=== PATIENT | female | born 1955 | race Caucasian/White ===

== ENCOUNTER → 2020-12-24 00:25 | Outpatient (CLI) | payer BC, SELFPAY ==
[2020-12-24 19:26] LABS: SARS-CoV-2 RNA PCR Negative
== END ==
PROVIDERS: PCP Internal Medicine; Visit Provider Internal Medicine Gastroenterology
DX: Z01.812 Encounter for preprocedural laboratory examination (principal); Z20.822 Contact with and (suspected) exposure to COVID-19
CPT/HCPCS: C9803; U0003; U0005

== ENCOUNTER 2020-12-27 00:51 | Day surgery (SDC) | payer BC, SELFPAY ==
[2020-12-14 14:05] VITALS: BMI 40.2
[2020-12-27 07:51] VITALS: BP 118/95; PULSE 86; RESP 18; TEMP 36.6; O2SAT 95; BMI 40.1
[2020-12-27] MEDS: LACTATED RINGERS 1,000 ML 150 ML IV CONT (08:07)
--- NOTE | 2020-12-27 08:30 | P.CONGI_ITS ---
Assessment and Plan Assessment and plan (1) Positive colorectal cancer screening using Cologuard test: Code(s): R19.5 - Other fecal abnormalities Status: Acute Assessment and Plan: Recent cologuard test was positive. For this reason screening colonoscopy will be performed. (2) Family history of colonic polyps: Code(s): Z83.71 - Family history of colonic polyps Status: Acute Assessment and Plan: Patient's brother has had colon polyps. For this reason colonoscopy will be performed. GI Consult Note Consult date/time: 12/27/20 08:30 HPI: Becca Malagon is a 65 year old female Presents for screening colonoscopy. Patient was recently found to have positive cologuard test. patient's family history is significant that her brother has had colon polyps. Patient states that her own weight appetite bowel movements are normal. She denies abdominal pain. She has had no bleeding. Patient presents today for screening colon oscopy. Review of Systems Review of Systems: All systems reviewed & are unremarkable except as noted in HPI and below PMFSH Social History Social History Smoking status: Never smoker Alcohol use details: rarely Living arrangements: alone Spiritual care concerns: No Meds Home Medications and Allergies Home Medications Medication Instructions Recorded Confirmed Type Herbal Life Vitamin 1 tab-cap PO BID 12/14/20 12/27/20 History aspirin-caffeine [Catracho Back and 1 tablet PO DAILY PRN 12/14/20 12/14/20 History Body] hyalur ac-chond sul-colg II-AA 2 cap PO DAILY 12/14/20 12/27/20 History [Hyaluronic Acid (chond-collgn)] lactobacillus combination no.4 3,000 mmu cells PO DAILY 12/14/20 12/27/20 History [Probiotic] omeprazole magnesium [Prilosec OTC] 20 mg PO DAILY 12/14/20 12/27/20 History Allergies Allergy/AdvReac Type Severity Reaction Status Date / Time adhesive tape AdvReac Redness of Verified 12/27/20 07:48 Skin Vital Signs Vital Signs - 24 hr 12/27/20 07:51 Temperature 98 F Pulse Rate 86 Respiratory Rate 18 Blood Pressure 118/95 H Pulse Oximetry 95 Exam Narrative: Exam Narrative: Physical exam reveals patient be alert. Vital signs stable. HEENT exam unremarkable. Patient is anicteric. Lungs are clear to auscultation and percussion. Heart is without murmur or extra sounds. Abdominal exam bowel sounds are present soft nontender with no organomegaly. Digital external rectal exam is normal.
--- NOTE | 2020-12-27 09:08 | WPDANESEPPF ---
Anes - Initial Pre Proc Eval Procedure: Operation Date: 12/27/20 09:00 Proposed Procedures p Colonoscopy - Charles Cheung MD Date/Time: 12/27/20 09:08 Surgeon: Charles Cheung MD Pre Op Diagnosis: positive cologuard Patient Data Age: 65 Gender: F Height: 1.52 m Weight: 93.2 kg Last Vital Signs Temp 98 F 12/27/20 07:51 Pulse 86 12/27/20 07:51 Resp 18 12/27/20 07:51 BP 118/95 H 12/27/20 07:51 Pulse Ox 95 12/27/20 07:51 Allergies Allergy/AdvReac Type Severity Reaction Status Date / Time adhesive tape AdvReac Redness of Verified 12/27/20 07:48 Skin Home Medications Medication Instructions Recorded Confirmed Type Herbal Life Vitamin 1 tab-cap PO BID 12/14/20 12/27/20 History aspirin-caffeine [Catracho Back and 1 tablet PO DAILY PRN 12/14/20 12/14/20 History Body] hyalur ac-chond sul-colg II-AA 2 cap PO DAILY 12/14/20 12/27/20 History [Hyaluronic Acid (chond-collgn)] lactobacillus combination no.4 3,000 mmu cells PO DAILY 12/14/20 12/27/20 History [Probiotic] omeprazole magnesium [Prilosec OTC] 20 mg PO DAILY 12/14/20 12/27/20 History Patient hx anesthesia problems: none Family hx anesthesia problems: none PMFSH Past Medical History Medical History (Updated 12/27/20 @ 09:08 by Joao Frederick MD) Arthritis GERD (gastroesophageal reflux disease) Social History Social History Smoking status: Never smoker Alcohol use details: rarely Living arrangements: alone Spiritual care concerns: No Anes - Eval Final PreProcedure Day of Procedure 12/27/20 09:08 Patient weight: morbidly obese Heart: regular rate and rhythm Lungs: clear to auscultation Airway: Mallampati scale class II Neurological: alert and oriented Last oral intake: >/= 8 hours ASA classification: III Emergent: no Anesthetic plan: proceed Anesthesia type and monitoring: general GIVS and standard monitoring Informed Consent: The patient's anesthetic plan and its attendant risks and benefits were discussed with the patient/family/POA. Questions were solicited and answers provided to the satisfaction of the patient/family/POA.
[2020-12-27 09:36] VITALS: BP 101/62; PULSE 76; RESP 16; O2SAT 95
[2020-12-27 09:46] VITALS: BP 121/77; PULSE 66; RESP 18; O2SAT 94
[2020-12-27 09:56] VITALS: BP 121/77; PULSE 68; RESP 20; O2SAT 94
== END 2020-12-27 10:15 | disposition home or self-care (01) ==
PROVIDERS: PCP Internal Medicine; Visit Provider Internal Medicine Gastroenterology
PROC: 0DJD8ZZ Inspection of Lower Intestinal Tract, Via Natural or Artificial Opening Endoscopic (ICD-10-PCS; CPT 45378; principal; 2020-12-27 09:00)
DX: R19.5 Other fecal abnormalities (principal); D12.5 Benign neoplasm of sigmoid colon; K57.30 Diverticulosis of large intestine without perforation or abscess without bleeding; K64.8 Other hemorrhoids; Z83.71 Family history of colonic polyps; K21.9 Gastro-esophageal reflux disease without esophagitis; E66.01 Morbid (severe) obesity due to excess calories; Z68.41 Body mass index [BMI] 40.0-44.9, adult
CPT/HCPCS: 45385; 88305; J2704; J7120

== ENCOUNTER 2021-11-27 02:49 | Day surgery (SDC) | payer MEDICARE, SELFPAY ==
[2021-11-20 16:07] VITALS: BMI 40.8
--- NOTE | 2021-11-27 07:47 | WPDANESEPPF ---
Anes - Initial Pre Proc Eval Procedure: Operation Date: 11/27/21 13:30 Proposed Procedures p Esophagogastroduodenoscopy - Charles Cheung MD Date/Time: 11/27/21 07:47 Surgeon: Charles Cheung MD Pre Op Diagnosis: ERIC Patient Data Age: 66 Gender: F Height: 1.52 m Weight: 95 kg Allergies Allergy/AdvReac Type Severity Reaction Status Date / Time adhesive tape AdvReac Redness of Verified 11/27/21 12:34 Skin Home Medications Medication Instructions Recorded Confirmed Type Herbal Life Vitamin 1 tab-cap PO BID 12/14/20 11/20/21 History aspirin-caffeine [Catracho Back and 1 tablet PO DAILY PRN 12/14/20 11/20/21 History Body] hyalur ac-chond sul-colg II-AA 2 cap PO DAILY 12/14/20 11/20/21 History [Hyaluronic Acid (chond-collgn)] lactobacillus combination no.4 3,000 mmu cells PO DAILY 12/14/20 11/20/21 History [Probiotic] omeprazole magnesium [Prilosec OTC] 20 mg PO DAILY 12/14/20 11/20/21 History ferrous sulfate [iron] mg 11/20/21 History Patient hx anesthesia problems: none Family hx anesthesia problems: none Results Review: All pre-operative results and documents have been reviewed as part of the pre-operative evaluation. [facility] Past Medical History Medical History (Updated 11/27/21 @ 12:50 by Charles Cheung MD) Anemia Arthritis GERD (gastroesophageal reflux disease) PONV (postoperative nausea and vomiting) Surgical History Surgical History (Updated 11/27/21 @ 07:48 by Andrea Holm DO) History of appendectomy History of History of hysterectomy Social History Social History Smoking status: Never smoker Alcohol use details: rarely Living arrangements: with friend(s) Spiritual care concerns: No Anes - Eval Final PreProcedure Day of Procedure 11/27/21 07:47 Patient weight: morbidly obese Heart: regular rate and rhythm Lungs: clear to auscultation and normal air movement Airway: Mallampati scale class II Neurological: alert and oriented Last oral intake: >/= 8 hours ASA classification: III Emergent: no Anesthetic plan: proceed Anesthesia type and monitoring: general GIVS and standard monitoring Results Review: All pre-operative results and documents have been reviewed as part of the pre-operative evaluation. Informed Consent: The patient's anesthetic plan and its attendant risks and benefits were discussed with the patient/family/POA. Questions were solicited and answers provided to the satisfaction of the patient/family/POA.
[2021-11-27 12:35] VITALS: BP 166/113; PULSE 76; RESP 19; TEMP 36.8; O2SAT 97
--- NOTE | 2021-11-27 12:48 | WPDGICN ---
Assessment and Plan Assessment and plan (1) ERIC (iron deficiency anemia): Code(s): D50.9 - Iron deficiency anemia, unspecified Status: Acute Assessment and Plan: patient with iron deficiency anemia. May be related to previously identified colon polyp. Patient remains anemic however an EGD is requested. Patient does have a history of heartburn in the past suggesting she may have pathology in the upper GI tract. Currently no heartburn on Prilosec. Prilosec use chronically may suppress acid and contribute to iron malabsorption which is another possible etiology. Further recommendations may be given after EGD. GI Consult Note Consult date/time: 11/27/21 12:48 HPI: Becca Malagon is a 66 year old female Presents for EGD. Patient has a history of iron deficiency anemia. For many years been treated with Prilosec for heartburn acid reflux this controls her symptoms well. One year ago was found to have a positive Cologuard test. Colonoscopy revealed colon polyps. Patient has subsequently been identified as having iron deficiency anemia and for thoroughness an EGD is requested. Patient presents today for EGD evaluation. She denies any ongoing heartburn. She has had no weight loss. She has had no bleeding. Family history is Significant for colon polyps.. Review of Systems Review of Systems: All systems reviewed & are unremarkable except as noted in HPI and below PMFSH Past Medical History Medical History (Updated 11/27/21 @ 12:50 by Charles Cheung MD) Anemia Arthritis GERD (gastroesophageal reflux disease) PONV (postoperative nausea and vomiting) Surgical History Surgical History (Updated 11/27/21 @ 07:48 by Andrea Holm DO) History of appendectomy History of History of hysterectomy Social History Social History Smoking status: Never smoker Alcohol use details: rarely Living arrangements: with friend(s) Spiritual care concerns: No Meds Home Medications and Allergies Home Medications Medication Instructions Recorded Confirmed Type Herbal Life Vitamin 1 tab-cap PO BID 12/14/20 11/20/21 History aspirin-caffeine [Catracho Back and 1 tablet PO DAILY PRN 12/14/20 11/20/21 History Body] hyalur ac-chond sul-colg II-AA 2 cap PO DAILY 12/14/20 11/20/21 History [Hyaluronic Acid (chond-collgn)] lactobacillus combination no.4 3,000 mmu cells PO DAILY 12/14/20 11/20/21 History [Probiotic] omeprazole magnesium [Prilosec OTC] 20 mg PO DAILY 12/14/20 11/20/21 History ferrous sulfate [iron] mg 11/20/21 History Allergies Allergy/AdvReac Type Severity Reaction Status Date / Time adhesive tape AdvReac Redness of Verified 11/27/21 12:34 Skin Vital Signs Vital Signs - 24 hr 11/27/21 12:35 Temperature 98.3 F Pulse Rate 76 Respiratory Rate 19 Blood Pressure 166/113 H Pulse Oximetry 97 Exam Narrative: Physical exam reveals patient be alert. Vital signs stable. HEENT exam is unremarkable. Patient is anicteric. Lungs are clear to auscultation and percussion. Heart is without murmur or extra sounds. Abdominal exam bowel sounds are present soft nontender with no organomegaly.
[2021-11-27] MEDS: LACTATED RINGERS 1,000 ML 150 ML IV CONT (13:00)
[2021-11-27 13:34] VITALS: BP 106/77; PULSE 85; RESP 21; O2SAT 92
[2021-11-27 13:44] VITALS: BP 102/85; PULSE 82; RESP 20; O2SAT 95
[2021-11-27 13:54] VITALS: BP 107/83; PULSE 74; RESP 20; O2SAT 95
== END 2021-11-27 14:24 | disposition home or self-care (01) ==
PROVIDERS: PCP Internal Medicine; Visit Provider Internal Medicine Gastroenterology
PROC: 0DJ08ZZ Inspection of Upper Intestinal Tract, Via Natural or Artificial Opening Endoscopic (ICD-10-PCS; CPT 43235; principal; 2021-11-27 13:30)
DX: D50.9 Iron deficiency anemia, unspecified (principal); K44.9 Diaphragmatic hernia without obstruction or gangrene; K25.3 Acute gastric ulcer without hemorrhage or perforation; K21.9 Gastro-esophageal reflux disease without esophagitis; E66.01 Morbid (severe) obesity due to excess calories; Z68.41 Body mass index [BMI] 40.0-44.9, adult
CPT/HCPCS: 43239; 87081; J2704; J7120

== ENCOUNTER 2022-04-10 01:56 | Day surgery (SDC) | payer MEDICARE, SELFPAY ==
[2022-03-22 11:52] VITALS: BMI 39.2
[2022-04-10 07:53] VITALS: BP 121/89; PULSE 108; RESP 20; TEMP 36.6; O2SAT 99; BMI 37.8
[2022-04-10] MEDS: LACTATED RINGERS 1,000 ML 150 ML IV CONT (07:56)
[2022-04-10] MEDS: AMPICILLIN 2 GM/NS 100 ML 2 GM/100 ML BAG IVPB (08:17)
--- NOTE | 2022-04-10 08:17 | PM.HPGS ---
History of Present Illness History of Present Illness Consent: Risks, benefits, and alternatives have been discussed and questions answered. Patient agrees to proceed with procedure. Chief complaint: gastric ulcer Narrative: Becca Malagon is a 66 year old female Presents for EGD. She had a history of gastric ulcers within her hiatal hernia in November of this year. Since that time she has been avoiding NSAIDs. She denies abdominal pain. She has had no obvious bleeding. Previously felt to have iron deficiency anemia she has been maintained on iron replacement. Patient gives additional history that in the intervening months she had knee surgery continues to have a small fracture in her right lower extremity. Patient currently is is support for ambulation. Patient has avoided NSAIDs despite this. Review of Systems Review of Systems: Review of systems noncontributory. [facility] Past Medical History Medical History (Updated 11/27/21 @ 13:37 by Charles Cheung MD) Anemia Arthritis GERD (gastroesophageal reflux disease) PONV (postoperative nausea and vomiting) Surgical History Surgical History (Updated 11/27/21 @ 07:48 by Andrea Holm DO) History of appendectomy History of History of hysterectomy Social History Social History Smoking status: Never smoker Alcohol intake: current Drinks per week: 1 Alcohol use details: rarely Substance use: never Substance use type: does not use Living arrangements: with friend(s) Spiritual care concerns: No Meds Home Medications and Allergies Home Medications Medication Instructions Recorded Confirmed Type Herbal Life Vitamin 1 tab-cap PO BID 12/14/20 03/22/22 History aspirin-caffeine 500 mg-32.5 mg 1 tablet PO DAILY PRN Pain 12/14/20 03/22/22 History tablet (Catracho Back and Body) hyalur ac-chond sul-colg II-AA 40 2 cap PO DAILY 12/14/20 03/22/22 History mg-80 mg-400 mg capsule (Hyaluronic Acid(with chondroitin-collagenII)) lactobacillus combination no.4 3 3,000 mmu cells PO DAILY 12/14/20 03/22/22 History billion cell capsule (Probiotic) ferrous sulfate 325 mg (65 mg 325 mg PO DAILY 11/20/21 03/22/22 History iron) tablet (iron) omeprazole 40 mg capsule,delayed 40 mg PO DAILY #30 caps 11/27/21 03/22/22 Rx release Allergies Allergy/AdvReac Type Severity Reaction Status Date / Time adhesive tape AdvReac Redness of Verified 04/10/22 07:51 Skin Vital Signs Vital Signs - 24 hr 04/10/22 07:53 Temperature 97.9 F Pulse Rate 108 H Respiratory Rate 20 Blood Pressure 121/89 Pulse Oximetry 99 Oxygen Delivery Room Air Exam Narrative: Physical exam reveals patient to be alert. Vital signs stable. HEENT exam is unremarkable. Patient is anicteric. Lungs are clear to auscultation and percussion. Heart is without murmur or extra sounds. Abdomen bowel sounds present soft nontender with no organomegaly. Extremities reveal news iron swelling at the right knee. Assessment and Plan Assessment and plan (1) Ricardo ulcer: Code(s): K25.9 - Gastric ulcer, unspecified as acute or chronic, without hemorrhage or perforation Status: Acute Assessment and Plan: Gastric ulcer identified may located within the hiatal hernia. Plan for follow-up EGD at this time. Continue to limit NSAIDs as much as possible. (2) ERIC (iron deficiency anemia): Code(s): D50.9 - Iron deficiency anemia, unspecified Status: Acute Assessment and Plan: Iron replacement until CBC and iron studies have returned to normal. (3) Family history of colonic polyps: Code(s): Z83.71 - Family history of colonic polyps Status: Acute Assessment and Plan: Patient has a family history of colon polyps. Colonoscopy 2020 was unremarkable. Consider follow-up colonoscopy at 5 year intervals.
--- NOTE | 2022-04-10 08:45 | P.PNAN_ITS ---
Anes - Initial Pre Proc Eval Procedure: Operation Date: 04/10/22 09:00 Proposed Procedures p Esophagogastroduodenoscopy - Charles Cheung MD Date/Time: 04/10/22 08:45 Surgeon: Charles Cheung MD Pre Op Diagnosis: gastric ulcer Patient Data Age: 66 Gender: F Height: 1.52 m Weight: 87.8 kg Last Vital Signs Temp 97.9 F 04/10/22 07:53 Pulse 108 H 04/10/22 07:53 Resp 20 04/10/22 07:53 BP 121/89 04/10/22 07:53 Pulse Ox 99 04/10/22 07:53 O2 Del Method Room Air 04/10/22 07:53 Allergies Allergy/AdvReac Type Severity Reaction Status Date / Time adhesive tape AdvReac Redness of Verified 04/10/22 07:51 Skin Home Medications Medication Instructions Recorded Confirmed Type Herbal Life Vitamin 1 tab-cap PO BID 12/14/20 03/22/22 History aspirin-caffeine 500 mg-32.5 mg 1 tablet PO DAILY PRN Pain 12/14/20 03/22/22 History tablet (Catracho Back and Body) hyalur ac-chond sul-colg II-AA 40 2 cap PO DAILY 12/14/20 03/22/22 History mg-80 mg-400 mg capsule (Hyaluronic Acid(with chondroitin-collagenII)) lactobacillus combination no.4 3 3,000 mmu cells PO DAILY 12/14/20 03/22/22 History billion cell capsule (Probiotic) ferrous sulfate 325 mg (65 mg 325 mg PO DAILY 11/20/21 03/22/22 History iron) tablet (iron) omeprazole 40 mg capsule,delayed 40 mg PO DAILY #30 caps 11/27/21 03/22/22 Rx release Patient hx anesthesia problems: none Family hx anesthesia problems: none Results Review: All pre-operative results and documents have been reviewed as part of the pre-o perative evaluation. [facility] Past Medical History Medical History (Updated 11/27/21 @ 13:37 by Charles Cheung MD) Anemia Arthritis GERD (gastroesophageal reflux disease) PONV (postoperative nausea and vomiting) Surgical History Surgical History (Updated 11/27/21 @ 07:48 by Andrea Holm DO) History of appendectomy History of History of hysterectomy Social History Social History Smoking status: Never smoker Alcohol intake: current Drinks per week: 1 Alcohol use details: rarely Substance use: never Substance use type: does not use Living arrangements: with friend(s) Spiritual care concerns: No Anes - Eval Final PreProcedure Day of Procedure 04/10/22 08:45 Patient weight: obese Heart: regular rate and rhythm Lungs: clear to auscultation Airway: Mallampati scale class II Neurological: alert and oriented Last oral intake: >/= 8 hours ASA classification: III Emergent: no Anesthetic plan: proceed Anesthesia type and monitoring: general GIVS and standard monitoring Results Review: All pre-operative results and documents have been reviewed as part of the pre- operative evaluation. Informed Consent: The patient's anesthetic plan and its attendant risks and benefits were discussed with the patient/family/POA. Questions were solicited and answers provided to the satisfaction of the patient/family/POA.
[2022-04-10 08:59] VITALS: BP 114/78; PULSE 84; RESP 18; O2SAT 94
[2022-04-10 09:09] VITALS: BP 117/77; PULSE 87; RESP 22; O2SAT 100
[2022-04-10 09:19] VITALS: BP 124/82; PULSE 88; RESP 17; O2SAT 99
== END 2022-04-10 09:32 | disposition home or self-care (01) ==
PROVIDERS: PCP Internal Medicine; Visit Provider Internal Medicine Gastroenterology
PROC: 0DJ08ZZ Inspection of Upper Intestinal Tract, Via Natural or Artificial Opening Endoscopic (ICD-10-PCS; CPT 43235; principal; 2022-04-10 09:00)
DX: Z09 Encounter for follow-up examination after completed treatment for conditions other than malignant neoplasm (principal); K44.9 Diaphragmatic hernia without obstruction or gangrene; Z87.11 Personal history of peptic ulcer disease; M19.90 Unspecified osteoarthritis, unspecified site; Z79.82 Long term (current) use of aspirin; D50.9 Iron deficiency anemia, unspecified; Z83.71 Family history of colonic polyps
CPT/HCPCS: 43239; 87081; J0290; J2704; J7120

== ENCOUNTER 2025-05-06 02:11 | Day surgery (SDC) | payer MEDICARE, SELFPAY ==
[2025-04-28 14:32] VITALS: BMI 40.0
--- NOTE | 2025-04-28 14:45 | PC.NURSE ---
[facility] has started construction of its new state of the art ER which will open Spring 2026. With this, we anticipate parking may be a challenge for some our surgical patients and families. Parking spaces are limited but are available for all Surgical, obstetrics, and ER patients sharing this lot. If you arrive and find you are having a hard time finding a parking space, please note that we understand the challenges, please drive around the hospital and park near Hospital Entrance 1. When you enter this entrance, you can ask a volunteer to direct or take you back to the surgical waiting area to check in. We appreciate everyone?s understanding of these expected challenges while we build for your future. Report to the Outpatient Waiting Room, entrance under the green pavilion located off [address], at time __06:00am on date _05/06/25 . Planned Procedure Time: __07:30am .? Time changes happen often and if your time is changed the preop area will call you the afternoon before. - You and your visitor will be asked to self-screen and do not enter if you have any COVID symptoms. Please call surgeon if you need to reschedule. - A mask is optional within the hospital at this time. Patients may have clear liquids (water, carbonated beverages, clear teas, apple juice) until 3 hours prior to surgery with a maximum of 20 ounces. - No food from midnight until time of surgery and no smoking, or chewing tobacco (or any form of nicotine). No chewing gum, candy or mints. Take only the following medications with a SIP of water on the morning of surgery: ___Extra strength Tylenol if needed DO NOT STOP ANY OF YOUR OTHER PRESCRIPTION MEDICATIONS PRIOR TO SURGERY EXCEPT THE FOLLOWING Hold all vitamins and supplements for 3 days per anesthesiologist. Medications to discontinue per physician HOLD ASPIRIN for [address] Peters Date to take last dose___04/28/25 Please no make-up, nail english, hairspray, perfume, deodorant, or body powder the day of surgery.? No jewelry (including any body piercings) or valuables the day of surgery, leave them at home.? Please take a shower or bath the night before, or the morning of, surgery with an antibacterial soap. GOLD DIAL ? Wear comfortable, loose fitting clothing.? - Jewelry must be removed prior to entering the operating room.? Rings and piercings that are not removed may be cut off. - The hospital will not accept responsibility for valuables.? - Please leave all valuables, including medications, at home the day of surgery. If you are going home after surgery, a licensed automation driver must drive you home.? - NO public transportation without another adult if you receive anesthesia. - We recommend that an adult stay with you for 24 hours following discharge. - We also recommend that you do not drive, make important decision, drink alcoholic beverages, or take any drugs that were not prescribed by your health care provider for at least 24 hours after your discharge time. Follow any additional instructions given to you from your surgeon. Telephone instructions given to ___Patient and asked if any additional questions and then verbalized understanding. Patient advised to call surgeon office or pre surgery nurse liaison [phone] if any additional questions.
--- NOTE | 2025-05-05 10:40 | PM.IMHP ---
H&P: HPI History of Present Illness Date/Time: 05/05/25 10:40 Chief Complaint: Left foot deformity and pain Narrative: 70-year-old woman with severe left hallux valgus deformity and lesser toe deformity. Pain over the bony prominences as well as the ball of the foot. Pain affects her daily activity. Difficulty with shoe wear and being up on her foot. She has failed conservative treatment with padding, orthotics, shoe wear, exercises and therapy. Presents for operative treatment. Review of Systems Constitutional: Constitutional: Denies fever(s) Eyes: Eyes: Denies blurry vision ENT: Reports Normal hearing present Cardiovascular: Cardiovascular: Denies chest pain and Denies dyspnea Respiratory: Respiratory: Denies dyspnea and Denies wheezing Gastrointestinal: Gastrointestinal: Denies abdominal pain Genitourinary: Genitourinary: Denies urinary urgency Musculoskeletal: Musculoskeletal: Reports as per HPI and Denies numbness Integumentary/Breasts: Skin/Breast: Denies changing lesions and Denies sores Neurologic: Reports Normal hearing present, Denies behavioral changes, Denies confusion, Denies numbness and Denies convulsions Psychiatric: Psychiatric: Denies behavioral changes, Denies confusion and Denies hallucinations Endocrine: Endocrine: Denies heat intolerance Hematologic/Lymphatic: Hematologic/Lymphatic: Denies easy bleeding Allergic/Immunologic: Allergic/Immunologic: Denies wheezing PMFSH Past Medical History Medical History Arthritis of foot, degenerative Medial crossover toe deformity Hallux valgus (acquired), right foot Acquired hallux valgus of left foot History of arm fracture PONV (postoperative nausea and vomiting) Anemia GERD (gastroesophageal reflux disease) Arthritis Surgical History Surgical History History of knee surgery x2 History of hysterectomy History of History of appendectomy Family History Family History Unknown Hypertension Heart disease Diabetes mellitus Ovarian cancer Cervical cancer Social History Social History Social History: caffeine use Smoking status: Never smoker Second hand tobacco smoke exposure: Yes Alcohol intake: current Drinks per week: 1 Alcohol use details: 1 per few months Substance use: never Substance use type: does not use Living arrangements: alone Occupation/Education: occupation Additional occupation/education comments: Attendant- [employer] Gender identity (if verbalized by the patient): Female Spiritual care concerns: No Meds Home Medications and Allergies Home Medications ?Medication ?Instructions ?Recorded ?Confirmed ?Type Herbal Life Vitamin 1 tab-cap PO BID 12/14/20 04/28/25 History aspirin-caffeine 500 mg-32.5 mg 1 tablet PO DAILY PRN Pain 12/14/20 04/28/25 History tablet ([place] Back and Body) chondroitin 80 mg-collagen 400 2 cap PO DAILY 12/14/20 04/28/25 History mg-hyaluronic 40 mg-amino acid capsule (Hyaluronic Acid(with chondroitin-collagenII)) lactobacillus combination no.4 3 3,000 mmu cells PO DAILY 12/14/20 04/28/25 History billion cell capsule (Probiotic) ferrous sulfate 325 mg (65 mg 325 mg PO DAILY 11/20/21 04/28/25 History iron) tablet (iron) omeprazole 40 mg capsule,delayed 40 mg PO DAILY #30 caps 11/27/21 04/28/25 Rx release Allergies Allergy/AdvReac Type Severity Reaction Status Date / Time Sulfa (Sulfonamide AdvReac Mild itchy eyes Verified 04/28/25 14:30 Antibiotics) tramadol AdvReac Mild Headache Verified 04/28/25 14:30 adhesive tape AdvReac Redness of Verified 04/28/25 14:30 Skin Exam Const: General: healthy appearing; No in distress or confusion Orientation/consciousness: oriented to person, oriented to place, oriented to time and No confusion HENMT: Head: normal to inspection, normocephalic and atraumatic Eyes: Conjunctivae: conjunctivae normal Sclera: sclerae normal Neck: Neck: supple and nontender Resp: Effort & Inspection: normal respiratory effort and no audible wheezes Cardio: Rhythm: regular rhythm Skin: General skin exam: no rashes or lesions noted Neuro: General: oriented to person, oriented to place, oriented to time and No confusion Extrem: Right upper extremity: normal to inspection Left upper extremity: normal to inspection Right lower extremity: ankle Details: normal to inspection, normal ROM ( dorsiflexion 5?, plantar flexion 45?, inversion 20?, eversion 10?) and other ( good stability all directions); no tenderness, no swelling and no ecchymosis and foot Details: normal to inspection, toes with normal ROM, vascular exam Details: dorsalis pedis pulse present and normal capillary refill, tendon exam Details: active flexion normal and active extension normal and motor-sensory exam Details: light-touch normal Location: in all toes Left lower extremity: ankle Details: normal ROM ( dorsiflexion 5?, plantar flexion 45?, inversion 20?, eversion 10?.); no tenderness and no swelling and foot Details: normal capillary refill, abnormal to inspection Details: a deformity Location: of the hallux valgus (moderate), tenderness Location: of the great toe Location: at the MTP joint (medial emminence), abnormal ROM of toe (hallux mtp df 40, pf 20), vascular exam (2+DP pulse, good cap refill all toes), tendon exam (FHL/EHL 5/5) and motor-sensory exam two point discrimination normal; no crepitus Psych: Affect: normal affect Assessment and Plan Assessment and plan (1) Acquired hallux valgus of left foot: Code(s): M20.12 - Hallux valgus (acquired), left foot Status: Acute Assessment and Plan: Updated history, physical exam and radiographs reviewed with the patient. Interval changes reviewed. worsening deformity and foot pain. Difficulty wearing shoes and with daily activity. Discussed the condition, nature, etiology and course of natural history with the patient. Treatment options including surgical and nonoperative treatment were reviewed. Risks and benefits of each as well as alternatives reviewed. The patient's questions were answered. Conservative treatment ice, compression and elevation. She would like to proceed with surgery. (2) Medial crossover toe deformity: Code(s): M20.5X9 - Other deformities of toe(s) (acquired), unspecified foot Status: Acute (3) Arthritis of foot, degenerative: Qualifiers: Osteoarthritis type: primary Laterality: left Qualified Code(s): M19.072 - Primary osteoarthritis, left ankle and foot Code(s): M19.079 - Primary osteoarthritis, unspecified ankle and foot Status: Acute Assessment and Plan: Discussed nonoperative and operative treatment options with the patient. Risks and benefits of each as well as alternatives were reviewed. All of the patient's questions were answered. The risks of surgery reviewed including but not limited to: Neurovascular damage, wound complication, infection, blood clot, pulmonary embolus, stroke, myocardial infarction, and anesthetic risks up to and including . Continued pain and possible dysfunction were explained. Specific risks of the procedure including later recurrence of deformity. No guarantees were offered. If hardware used, discussed risk of failure/ breakage and possible need for removal. If complications occur, the patient understands the need for further treatment, possible further surgery. Patient verbalizes understanding and wishes to proceed. PLAN: Left foot hallux metatarsophalangeal arthrodesis, Alignment correction of lesser toes including metatarsal head resection, proceed as indicated.
[2025-05-06] VITALS (10 sets, daily range): BP systolic 109–149; BP diastolic 66–90; PULSE 65–88; RESP 12–20; TEMP 36.2–36.7; O2SAT 94–100; BMI 42.4
--- NOTE | ~2025-05-06 | XR_ITS ---
EXAMINATION: XR surgery orthopedic INDICATION: LEFT FOOT ARTHRODESIS . COMPARISON: None TECHNIQUE: 7 fluoroscopic images of the left foot were obtained during arthrodesis. Fluoroscopy exposure time was 2 minutes 1 second. Air Kerma 0.8623 mGy. DAP 14.4871 mGym2. FINDINGS/IMPRESSION: No radiologist was present or involved at the time of the procedure. Static images were submitted for interpretation. K wires are seen through the second through fifth digits traversing the phalanges and extending through the metacarpals, to the second through fourth proximal metatarsals and all the way through the proximal aspect of the fifth metatarsal. There is a plate and screw device traversing the first MTP. Pre sumably there has been bunionectomy. Fluoroscopic documentation of left foot arthrodesis. Please refer to the operative note for complete procedural details Reviewed, dictated and finalized at location A.
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
--- OUTSIDE RECORDS SUMMARY | 2025-05-06 02:13 | XMS_ITS | Encounter Summary ---
Author Organization [facility] Address [address] [place] [address] Phone Care Team Providers Care Homebirth Midwife Name Role Phone Solo Reid MD Primary Care Provider [phone] Encounter Details Date Type Department Care Team (Latest Contact Info) Description 06/19/2023 Transcribe [facility] Pre[facility] [address] [place] [address] Clive Encinas MD [address] [place] [address] Pre-op testing (Primary Dx) Social History Tobacco Use Types Packs/Day Years Used Date Smoking Tobacco: Never Smokeless Tobacco: Never Alcohol Use Standard Drinks/Week Comments Yes 0 (1 standard drink = 0.6 oz pur e alcohol) RARELY Comments Unknown Sex and Gender Information Value Date Recorded Sex Assigned at Not on file Legal Sex Female 11:44 PM CDT Gender Identity Not on file Sexual Orientation Not on file documented as of this encounter Plan of Treatment Not on file documented as of this encounter Results * TYPE & SCREEN (CROSSMATCH CONVERTIBLE) (06/19/2023 12:51 PM BAKER SECOND) ABO TYPING A 06/19/2023 2:56 PM BAKER SECOND [facility] BLOOD B[facility] RH Positive 06/19/2023 2:56 PM BAKER SECOND [facility] BLOOD B[facility] ABSC Negative 06/19/2023 2:56 PM BAKER SECOND [facility] BLOOD B[facility] Blood Venipuncture / Unknown 06/19/2023 12:51 PM BAKER SECOND 06/19/2023 1:29 PM BAKER SECOND us Clive Encinas MD BLOOD BANK ORDERABLES Edited Res ult - Final [facility] BLOOD BANK [address] [place] [address] documented in this encounter Visit Diagnoses Diagnosis Pre-op testing- Primary Preoperative examination, unspecified documented in this encounter Care Teams Homebirth Midwife Relationship Specialty Start Date End Date Solo Reid MD [address] [place] [address] PCP - General Internal Medicine 05/17/23 documented as of this encounter
--- OUTSIDE RECORDS SUMMARY | 2025-05-06 02:13 | XMS_ITS | Clinical Summary ---
Author Organization [facility] Address [address] [place] [address] Phone Care Team Providers Care Forester Silviculture Name Role Phone Solo Reid MD Primary Care Provider [phone] Allergies Active Allergy Reactions Criticality Noted Date Comments Sulfa Antibiotics Rash,Swelling 06/19/2023 Tramadol Other (see Comments) 06/19/2023 HEADACHE Medications omeprazole (PriLOSEC) 40 MG CAPSULE DELAYED RELEASE Take 1 Tablet by mouth every morning. Active Ferrous Sulfate (Iron) 325 (65 Fe) MG Tablet Take 1 Tablet by mouth daily. Active Multiple Vitamin (MULTI-VITAMIN PO) Take 1 Tablet by mouth daily. Active Acetaminophen (TYLENOL ARTHRITIS PAIN PO) Take 2 Tablets by mouth 3 times daily. Active Magnesium Hydroxide (DULCOLAX PO) Take 1 Tablet by mouth daily as needed for Other (Constipation ). Active Sodium Hyaluronate, oral, (Hyaluronic Acid) 100 MG Capsule Take 2 Capsules by mouth daily. Active Vitamin D3 1000 UNIT Tablet Take 1 Tablet by mouth daily. Active Multiple Vitamins-Minera ls (HAIR SKIN NAILS PO) Take 1 Tablet by mouth daily. Active HYDROcodone-joss taminophen (NORCO) 7.5-325 MG TabletIndicatio ns:Pain Take 1 Tablet by mouth every 6 hours as needed for Moderate or more severe pain or Severe pain. Take 1 tablet every 4-6 hours as needed for pain Indications: Pain 06/17/2023 Active Active Problems Problem Noted Date Diagnosed Date Primary osteoarthritis of left knee 06/20/2023 Family History Medical History Relation Name Comments Other-comment Father CHEST ANEURYSM Cancer Mother BREAST, CANCER Relation Name Status Comments Father Mother Social History Tobacco Use Types Packs/Day Years Used Date Smoking Tobacco: Never Smokeless Tobacco: Never Alcohol Use Standard Drinks/Week Comments Yes 0 (1 standard drink = 0.6 oz pur e alcohol) RARELY Comments Unknown Sex and Gender Information Value Date Recorded Sex Assigned at Not on file Legal Sex Female 11:44 PM CDT Gender Identity Not on file Sexual Orientation Not on file Last Filed Vital Signs Vital Sign Reading Time Taken Comments Blood Pressure 158/82 07/15/2023 9:07 AM FRAME STRAIGHTENER Pulse 68 07/15/2023 9:07 AM FRAME STRAIGHTENER Temperature 36.7 C (98.1 F) 07/15/2023 9:07 AM FRAME STRAIGHTENER Respiratory Rate 16 07/15/2023 9:07 AM FRAME STRAIGHTENER Oxygen Saturation 97% 07/15/2023 9:07 AM FRAME STRAIGHTENER Inhaled Oxygen Concentration - - Weight 83.9 kg (185 lb) 06/24/2023 9:44 AM FRAME STRAIGHTENER Height 152.4 cm (5') 06/24/2023 9:44 AM FRAME STRAIGHTENER Body Mass Index 36.13 06/24/2023 9:44 AM FRAME STRAIGHTENER Plan of Treatment Health Maintenance Due Date Last Done Comments DEXA Bone Density 1955 Hepatitis C Virus (HCV) Screening 1955 Cologuard 2001 Colonoscopy 2001 Colorectal Cancer Screening 2001 Immunochemical Fecal Occult Blood 2001 Pneumococcal Immunization (5 0+ years) (1 of 1 - PCV) 2006 Zoster Immunization (1 of 2) 2006 Medicare Initial AWV [id number] 07/08/2023 Mammogram 11/01/2023 10/31/2022, 08/24/2020, 10/02/2017 Influenza Immunization (#1) 2025 SARS-COV-2 Immunization ( - season) 2025 04/23/2022, 12/20/2020, 11/29/2020 Respiratory Syncytial Virus (RSV) Immunization (Adult) (1 - 1-dose 75+ series) 2031 DTaP/Tdap/Td Immunization Discontinued 09/09/2017 TdaP Immunization Completed 09/09/2017 Hepatitis B Immunization Aged Out No longer eligible based on patient's age to complete this topic Human Papillomavirus (HPV) Immunization Aged Out No longer eligible based on patient's age to complete this topic Meningococcal Immunization (ACWY) Aged Out No longer eligible based on patient's age to complete this topic Rotavirus Immunization Aged Out No lo nger eligible based on patient's age to complete this topic Medical Devices Implanted Type Area Process Specialist Device Identifier Shelf Expiration Date Model / Serial / Lot [employer] Bone Orthoset 1 40gm - [id number] Implanted:Qty : 2 on 06/20/2023 by [facility] IMPLANT Left: Knee [employer] 10/05/2024 [id number] / [id number] / [id number] Insert Evolution Mp Tib Keeled Nonpor Size 4 Standard Left - [id number] Implanted:Qty : 1 on 06/20/2023 by [facility] IMPLANT Left: Knee [employer] 02/12/2031 [id number] / [id number] / [id number] Component Patellar High Dome 9mm 25mm Recessed Advance All Poly - [id number] Implanted:Qty : 1 on 06/20/2023 by [facility] IMPLANT Left: Knee [employer] 10/18/2029 [id number] / [id number] / [id number] Insert Evolution Mp Fem Cs/Cr Porous - [id number] Implanted:Qty : 1 on 06/20/2023 by [facility] IMPLANT Left: Knee [employer] 04/04/2031 [id number] / [id number] / [id number] Insert Evolution Mp Cs Size 4 Standard 10mm Left - [id number] Implanted:Qty : 1 on 06/20/2023 by [facility] IMPLANT Left: Knee [employer] 01/12/2031 [id number] / [id number] / [id number] Insurance MEDICARE C HUMANA Advance Directives Documents on File Type Date Recorded Patient Service Associate Expl anation Advance Care Planning Discussion 07/02/2023 2:03 PM ACP Discussion Recor d 06/27/23 Power of Land Degradation Analyst for Health Care 07/02/2023 1:31 PM POA 06/27/23 * Full Code (Latest Code Status on File) Date Activated Date Inactivated Comments 07/05/2023 8:39 AM Care Teams Forester Silviculture Relationship Specialty Start Date End Date Solo Reid MD [address] [place] [address] PCP - General Internal Medicine 05/17/23
--- OUTSIDE RECORDS SUMMARY | 2025-05-06 02:13 | XMS_ITS | Encounter Summary ---
Author Organization [facility] Address [address] [place] [address] Phone Care Team Providers Care Quality Improvement Specialist Name Role Phone No, Physician Primary Care Provider [phone] Solo Reid MD Primary Care Provider + Nas Miller MD Unavailable [phone] Encounter Details Date Type Department Care Team (Late st Contact Info) Description 09/14/2021 Orders Only [facility] [address] [place] [address] Scanning, Provider Social History Tobacco Use Types Packs/Day Years Used Date Smoking Tobacco: Never Smokeless Tobacco: Never Alcohol Use Standard Drinks/Week Comments Yes 0 (1 standard drink = 0.6 oz pur e alcohol) Comments No Sex and Gender Information Value Date Recorded Sex Assigned at Not on file Legal Sex Female 3:10 AM COMPLIANCE PARALEGAL Gender Identity Not on file Sexual Orientation Not on file Occupation Industry Job Start Date Job End Date retired Not on file Not on file Not on file documented as of this encounter Plan of Treatment Not on file documented as of this encounter Procedures Procedure Name Priority Date/Time Associated Diagnosis Comments SCAN - RADIOLOGY/IMAGING 09/14/2021 documented in this encounter Results * SCAN - RADIOLOGY/IMAGING (09/14/2021) Anatomical Region Laterality Modality Other us Provider Scanning Final Result documented in this encounter Visit Diagnoses Not on filedocumented in this encounter Care Teams Quality Improvement Specialist Relationship Specialty Start Date End Date No, Physician PCP - General 10/02/17 11/05/21 Solo Reid MD [id number] [facility] [place] [id number] PCP - General Internal Medicine 11/06/21 Nas Miller MD [address] [place] [address] Surgeon Orthopedic Surgery 01/31/22 documented as of this encounter
[2025-05-06] MEDS: ACETAMINOPHEN 500 MG TABLET 1000 MG PO (06:23)
[2025-05-06] MEDS: KETOROLAC 15 MG/ML VIAL (*BKC) IV PUSH (06:45)
[2025-05-06 06:58] LABS: Hematocrit 38.9 % (37.0-47.0); Hemoglobin 12.6 g/dL (12.0-15.0)
--- NOTE | 2025-05-06 06:59 | WPDANESEPPF ---
Anes - Initial Pre Proc Eval Procedure: Operation Date: 05/06/25 07:30 Proposed Procedures p Left Hallux Metatarsophalangeal Arthrodesis, Resection Metatarsal Heads Two through Five with Correction Toe Alignment, Proceed as Indicated - Nitin Peters MD Date/Time: 05/06/25 06:59 Surgeon: Nitin Peters MD Pre Op Diagnosis: arthritis left forefoot,left hallux valgus, Patient Data Age: 70 Gender: F Height: 1.5 m Weight: 90 kg Allergies Allergy/AdvReac Type Severity Reaction Status Date / Time Sulfa (Sulfonamide AdvReac Mild itchy eyes Verified 04/28/25 14:30 Antibiotics) tramadol AdvReac Mild Headache Verified 04/28/25 14:30 adhesive tape AdvReac Redness of Verified 04/28/25 14:30 Skin Home Medications ?Medication ?Instructions ?Recorded ?Confirmed ?Type Herbal Life Vitamin 1 tab-cap PO BID 12/14/20 04/28/25 History aspirin-caffeine 500 mg-32.5 mg 1 tablet PO DAILY PRN Pain 12/14/20 04/28/25 History tablet ([place]racho Back and Body) chondroitin 80 mg-collagen 400 2 cap PO DAILY 12/14/20 04/28/25 History mg-hyaluronic 40 mg-amino acid capsule (Hyaluronic Acid(with chondroitin-collagenII)) lactobacillus combination no.4 3 3,000 mmu cells PO DAILY 12/14/20 04/28/25 History billion cell capsule (Probiotic) ferrous sulfate 325 mg (65 mg 325 mg PO DAILY 11/20/21 04/28/25 History iron) tablet (iron) omeprazole 40 mg capsule,delayed 40 mg PO DAILY #30 caps 11/27/21 04/28/25 Rx release Laboratory Tests 05/06/25 06:53 Hgb 12.6 g/dL (12.0-15.0) Hct 38.9 % (37.0-47.0) Patient hx anesthesia problems: post op nausea/vomiting Family hx anesthesia problems: none Results Review: All pre-operative results and documents have been reviewed as part of the pre-operative evaluation. [facility] Past Medical History Medical History Arthritis of foot, degenerative Medial crossover toe deformity Hallux valgus (acquired), right foot Acquired hallux valgus of left foot History of arm fracture PONV (postoperative nausea and vomiting) Anemia GERD (gastroesophageal reflux disease) Arthritis Surgical History Surgical History History of knee surgery x2 History of hysterectomy History of History of appendectomy Family History Family History Unknown Hypertension Heart disease Diabetes mellitus Ovarian cancer Cervical cancer Social History Social History Social History: caffeine use Smoking status: Never smoker Second hand tobacco smoke exposure: Yes Alcohol intake: current Drinks per week: 1 Alcohol use details: 5-6/month Substance use: never Substance use type: does not use Living arrangements: with friend(s) Occupation/Education: occupation Additional occupation/education comments: Attendant- [employer] Gender identity (if verbalized by the patient): Female Spiritual care concerns: No Anes - Eval Final PreProcedure Day of Procedure 05/06/25 06:59 Patient weight: morbidly obese Lungs: normal air movement Airway: Mallampati scale class II and special considerations (Upper partial, many missing teeth. ) Neurological: alert and oriented Last oral intake: >/= 8 hours ASA classification: III Emergent: no Anesthetic plan: proceed Anesthesia type and monitoring: general ETT and standard monitoring Results Review: All pre-operative results and documents have been reviewed as part of the pre-operative evaluation. BMI 41, OA, pt can walk 1 fos, no cp or sob. Informed Consent: The patient's anesthetic plan and its attendant risks and benefits were discussed with the patient/family/POA. Questions were solicited and answers provided to the satisfaction of the patient/family/POA.
--- NOTE | 2025-05-06 07:20 | WPDHPUPDATE1 ---
History and Physical Update Update Date/Time: 05/06/25 07:20 History and Physical has been reviewed, including an updated exam of the patient. There are NO changes in the patient's condition. Risks, benefits, and alternatives have been discussed and questions answered. Patient agrees to proceed with procedure.
[2025-05-06] MEDS: ceFAZolin 2 GM in SODIUM CHLORIDE 0.9% IV 50 ML 100 ML IVPB (07:27)
[2025-05-06] MEDS: LACTATED RINGERS 1,000 ML 30 ML IV CONT ×2 (09:53)
--- NOTE | 2025-05-06 10:05 | P.OP_ITS ---
Procedure Note - Detailed Date of Procedure 05/06/25 Pre-op Diagnosis arthritis left forefoot,left hallux valgus, crossover toe deformity Post-op Diagnosis Same Procedure Performed Left hallux metatarsophalangeal arthrodesis, metatarsal head resection 2 through 5, realignment the lesser toes with soft tissue reconstruction. Surgeon Nitin Peters MD Valve Technician 1st criminal legal assistant Anesthesia General Indications 70-year-old woman with severe left hallux valgus deformity lesser toe crossover deformity and subluxation. Difficulty with shoe wear and activity. Failed conservative treatment presents for operative treatment Description of Procedure Patient identified in the preoperative holding. Informed consent given. Operative extremity marked. Patient received intravenous antibiotics. Patient brought to the operating room where underwent general anesthetic by anesthesia team. Positioned supine on operating room table. Time-out performed confirming the patient, site of the surgery and the plan. Left foot prepped and draped us ua sterile surgical fashion using a ChloraPrep skin solution. Foot and ankle exsanguinated and a calf tourniquet inflated to 225 mmHg. Longitudinal incision made dorsum of hallux centered over metatarsophalangeal joint with a 15 blade knife. Hemostasis controlled electrocautery. Extensor hallucis tendon retracted laterally and a dorsal capsulotomy performed in line with the longitudinal skin incision. Soft tissue released off of the metatarsal to expose the joint. Extensive scar and fibrosis of the joint noted. Rongeur used to remove excess osteophytes. Reaming of the joint then performed with the Arthrex joint preparation reamers. Guide pin placed metatarsal and reaming performed size 18 mm. Guide pin then placed in the proximal phalanx and reaming performed to a size 18 mm. Wound thoroughly irrigated and debris removed. Plantar osteophytes carefully removed. Joint then aligned and provisionally pinned. Alignment checked with image intensification. Fixation achieved with a dorsal locking plate with compression and a 3.0 mm lag screw. Image intensification confirmed final position. Wound irrigated and capsule closed with 3-0 Monocryl interrupted suture. Subcutaneous tissue repaired with 3-0 Monocryl interrupted suture and skin repaired with 4-0 nylon interrupted suture. Lesser toes then addressed. Longitudinal incision made between the 2nd and 3rd metatarsal a 15 blade knife. Hemostasis controlled electrocautery. Dissection then carried above the neurovascular bundle to the 2nd metatarsophalangeal joint. Joint was released and a sagittal saw used to remove 2nd metatarsal head. This was smoothed with a rongeur. Dissection and carried to the 3rd metatarsophalangeal joint and the 3rd metatarsal head was resected. Image intensification confirm resection levels. Similar fashion the 4th and 5th metatarsal heads without resected with a dorsal longitudinal incision made between the metatarsals. Hemostasis controlled electrocautery. Dissection to the metatarsophalangeal with release and resection of metatarsal heads. Base of the proximal phalanx of the 2nd through 5th toes removed with the rongeur. 2 0 Vicryl suture was then used to repair the medial collateral ligament of the 2nd and 3rd toe to bring the toe out of valgus in into more neutral position. Image intensification confirmed alignment. Final fixation achieved with 0.45 in K- wire placed intramedullary. Image intensification used for final alignment and verification of the hardware. Wound sterilely irrigated and subcutaneous tissue closed with 3-0 Monocryl interrupted suture and skin repaired with 4-0 nylon running suture. Sterile dressing applied. Tourniquet released. Good capillary refill noted in the toe. Patient awoke from anesthesia, extubated and taken to the recovery room in stable condition. All sponge, needle, instrument counts correct at the end of the case. Implants Arthrex hallux MTP arthrodesis plate and screws, 0.045 in K-wire x4 Estimated Blood Loss 10 Tourniquet Time Total Tourniquet Time: 120 Drains No Packing No Pathology None sent Complications None Condition Stable Disposition PACU [facility] Billing Surgery - Charge Forward: Surgery Billing ([id number], [id number], [id number])
[2025-05-06] MEDS: ONDANSETRON INJ 4 MG/2 ML VIAL IV PUSH (10:47)
--- NOTE | 2025-05-06 12:34 | SUR.PHASEII ---
POST-OP SHOE PLACED ON LEFT FOOT.
== END 2025-05-06 12:23 | disposition home or self-care (01) ==
PROVIDERS: PCP Internal Medicine; Visit Provider Orthopaedic Surgery
PROC: (CPT 28750; principal; 2025-05-06 07:30)
DX: M20.12 Hallux valgus (acquired), left foot (principal); M20.5X2 Other deformities of toe(s) (acquired), left foot; M19.072 Primary osteoarthritis, left ankle and foot; E66.01 Morbid (severe) obesity due to excess calories; Z68.41 Body mass index [BMI] 40.0-44.9, adult
CPT/HCPCS: 28750; 28313 ×4; 28114; 36415; 85014; 85018; 99199; J0690; A9270; C1713; C1769; J1885; J2250; J2270; J2405; J2704; J7120